=== PATIENT | female | born 1990 | race Caucasian/White ===

== ENCOUNTER 2016-11-13 08:29 | Outpatient (CLI) | payer BC, MEDICAID ==
[2016-11-13 19:13] LABS: BASOPHILS % (AUTO) 0.2 %; EOSINOPHILS # (AUTO) 0.1 10^3/uL (0.0-0.7); EOSINOPHILS % (AUTO) 1.7 %; HCT - HEMATOCRIT 36.1 % (37.0-47.0); LYMPHOCYTES # (AUTO) 3.2 10^3/uL (1.5-3.5); LYMPHOCYTES % (AUTO) 44.5 %; MEAN CORPUSCULAR HEMOGLOBIN 28.7 pg (27.0-31.0); MEAN CORPUSCULAR HGB CONC 33.2 g/dL (32.0-36.0); MEAN CORPUSCULAR VOLUME 86.3 fL (81.0-99.0); MONOCYTES # (AUTO) 0.6 10^3/uL (0.0-1.0); NEUTROPHILS # (AUTO) 3.3 10^3/uL (1.5-6.6); NEUTROPHILS % (AUTO) 45.6 %; RED BLOOD COUNT 4.18 10^6/uL (4.20-5.40); RED CELL DISTRIBUTION WIDTH 13.2 % (12.0-15.0); UNCORRECTED WHITE BLOOD COUNT 7.2 x10^3/uL; WHITE BLOOD COUNT 7.2 x10^3/uL (4.8-10.8)
[2016-11-13 19:34] LABS: ALBUMIN/GLOBULIN RATIO 1.2 (1.0-2.2); BILIRUBIN,TOTAL 0.5 mg/dL (0.2-1.0); BUN - BLOOD UREA NITROGEN 10 mg/dL (6-20); CALCIUM 9.2 mg/dL (8.5-10.3); CARBON DIOXIDE - CO2 23 mmol/L (21-32); CHLORIDE 105 mmol/L (101-111); CHOL/HDL RATIO 4.7 (<4.4); CHOLESTEROL 207 mg/dL; CREATININE 0.7 mg/dL (0.4-1.0); GFR - MDRD 101 (>89); GLUCOSE 78 mg/dL (70-100); HDL CHOLESTEROL 44 mg/dL; LDL/HDL RATIO 2.5 (<4.4); POTASSIUM 3.7 mmol/L (3.5-5.0); SODIUM 137 mmol/L (135-145); TOTAL PROTEIN 7.5 g/dL (6.7-8.2); TRIGLYCERIDES 261 mg/dL; VLDL CHOLESTEROL 52 mg/dL
== END 2016-11-13 08:30 | disposition home or self-care (01) ==
LOC: LAB.N 08:29
PROVIDERS: ATTEND Nurse Practitioner Gerontology
DX: Z13.9 Encounter for screening, unspecified (principal)
CPT/HCPCS: 36415; 80053; 80061; 84443; 85025